=== PATIENT | male | born 2000 | race African-American/Black ===

== ENCOUNTER 2022-04-18 11:35 | Emergency (ER) | payer MEDICAID ==
[~2022-04-18] VITALS: Ht 175.3 cm; Wt 86.0 kg
[2022-04-18] MEDS ORDERED: KETOROLAC 60MG/2ML VIAL IM ONE (12:00)
[2022-04-18 12:23] VITALS: BP 103/46
[2022-04-18] MEDS ORDERED: MORPHINE SULFATE 2 MG/ML CPJ (NOT FOR IM USE) IV ONE (14:00)
[2022-04-18] MEDS ORDERED: NAPR-681 MT (15:12)
== END 2022-04-18 16:03 | disposition home or self-care (01) ==
LOC: ER 12:16
DX: S93.401A Sprain of unspecified ligament of right ankle, initial encounter (principal); J45.909 Unspecified asthma, uncomplicated; W50.2XXA Accidental twist by another person, initial encounter; Y93.89 Activity, other specified; Y92.89 Other specified places as the place of occurrence of the external cause; Y99.8 Other external cause status
CPT/HCPCS: 29515; 73610; 96372; 99283; J1885; J2270